=== PATIENT | female | born 1980 | race Caucasian/White ===

== ENCOUNTER 2017-02-21 13:43 | Emergency (ER) | payer MEDICAID, OTHER ==
[~2017-02-21] VITALS: Ht 157.5 cm; Wt 91.0 kg
[2017-02-21] MEDS ORDERED: AMOX125S8 PO (13:50)
[2017-02-21] MEDS ORDERED: KETOROLAC 60MG/2ML VIAL IM ONE (18:00)
[2017-02-21 18:15] VITALS: BP 131/81
== END 2017-02-21 18:57 | disposition home or self-care (01) ==
LOC: ER 16:13
DX: H60.92 Unspecified otitis externa, left ear (principal); R51 Headache; R68.84 Jaw pain; R03.0 Elevated blood-pressure reading, without diagnosis of hypertension; J45.909 Unspecified asthma, uncomplicated
CPT/HCPCS: 96372; 99283; J1885

== ENCOUNTER 2017-11-01 16:59 | Emergency (ER) | payer MEDICAID ==
[~2017-11-01] VITALS: Ht 149.9 cm; Wt 86.0 kg
[~2017-11-01 16:59] MED LIST: AMOX125S8 PO
[2017-11-02 03:08] LABS: BASOPHILS % 0.5 % (0.0-2.0); EOSINOPHILS % 3.3 % (0.0-5.0); HEMATOCRIT. 32.9 % (36.0-48.0); HEMOGLOBIN. 11.1 g/dL (12.0-16.0); LYMPHOCYTES % 26.4 % (20.0-50.0); MEAN CORPUSCULAR HEMOGLOBIN 29.5 pg (28.0-32.0); MEAN CORPUSCULAR VOLUME 87.7 fL (81.0-99.0); MEAN PLATELET VOLUME 8.9 fl (7.4-10.4); MONOCYTES % 6.2 % (2.0-8.0); NEUTROPHILS % 63.6 % (40.0-76.0); PLATELET 304 x1000/uL (130-400); RED BLOOD CELL COUNT 3.75 mill/uL (4.2-5.4); RED CELL DISTRIBUTION WIDTH 14.8 % (11.6-14.6)
[2017-11-02 03:09] LABS: CHLORIDE 106 mEq/L (98-107)
[2017-11-02 03:33] LABS: B-HCG QUANTITATIVE 12199 mIU/mL (<3)
[2017-11-02 03:49] LABS: CLARITY URINE CLOUDY (CLEAR); COLOR URINE YELLOW (YELLOW); KETONES URINE NEGATIVE (NEGATIVE); LEUKOCYTE ESTERASE URINE NEGATIVE (NEGATIVE); NITRITE URINE NEGATIVE (NEGATIVE); OCCULT BLOOD URINE 3+ (NEGATIVE); PROTEIN URINE NEGATIVE (NEGATIVE); SPECIFIC GRAVITY URINE 1.033 (1.005-1.030); UROBILINOGEN URINE 0.2 E.U./dL (0.2-1.0)
[2017-11-02 04:04] LABS: *AMPHETAMINES SCREEN URINE NEGATIVE (NEGATIVE); *BARBITURATES SCREEN URINE NEGATIVE (NEGATIVE); *COCAINE SCREEN URINE NEGATIVE (NEGATIVE); PHENCYCLIDINE URINE SCREEN NEGATIVE (NEGATIVE)
[2017-11-02 05:10] LABS: *BENZODIAZEPINES SCREEN URINE NEGATIVE (NEGATIVE); CANNABINOID URINE SCREEN NEGATIVE (NEGATIVE); METHADONE URINE SCREEN NEGATIVE (NEGATIVE); OPIATES URINE SCREEN NEGATIVE (NEGATIVE)
[2017-11-02 05:12] VITALS: BP 114/65
== END 2017-11-02 05:21 | disposition home or self-care (01) ==
LOC: ER 16:59
DX: O20.9 Hemorrhage in early pregnancy, unspecified (principal); Z3A.01 Less than 8 weeks gestation of pregnancy
CPT/HCPCS: 36415; 76801; 80053; 80305; 81003; 81025; 84702; 85025; 86850; 86900; 99285

== ENCOUNTER 2018-10-13 20:25 | Emergency (ER) | payer MEDICAID ==
[~2018-10-13] VITALS: Ht 147.3 cm; Wt 79.0 kg
[2018-10-13 22:57] LABS: CLARITY URINE CLEAR (CLEAR); COLOR URINE YELLOW (YELLOW); KETONES URINE TRACE (NEGATIVE); LEUKOCYTE ESTERASE URINE TRACE (NEGATIVE); NITRITE URINE NEGATIVE (NEGATIVE); OCCULT BLOOD URINE NEGATIVE (NEGATIVE); PROTEIN URINE NEGATIVE (NEGATIVE)
[2018-10-14] MEDS ORDERED: VISCOUS LIDOCAINE 2% 15 ML UDC MM STA (04:25)
[2018-10-14] MEDS ORDERED: FAMOTIDINE 20MG/2ML VIAL IV SCH (04:30)
[2018-10-14] MEDS ORDERED: MAGNESIUM/ALUMINUM HYDROXIDE/SIMETHICONE 30ML UDC PO ONE (04:30)
[2018-10-14] MEDS ORDERED: CEPHALEXIN 250MG CAPSULE PO NR (05:30)
[2018-10-14 05:58] VITALS: BP 125/92
== END 2018-10-14 05:59 | disposition home or self-care (01) ==
LOC: ER 20:25
DX: N39.0 Urinary tract infection, site not specified (principal); R12 Heartburn; J45.909 Unspecified asthma, uncomplicated; Z98.890 Other specified postprocedural states
CPT/HCPCS: 81003; 81025; 96374; 99283; J3490; Z7610

== ENCOUNTER 2022-12-15 08:31 | Emergency (ER) | payer MEDICAID ==
[~2022-12-15] VITALS: Ht 157.5 cm; Wt 87.0 kg
[~2022-12-15 08:31] MED LIST changes: +AMOX125S12 PO; -AMOX125S8 PO
[2022-12-15 08:34] VITALS: BP 135/87
[2022-12-15] MEDS ORDERED: SULF1TAB48 MT (09:40)
[2022-12-15] MEDS ORDERED: SULFAMETHOXAZOLE/TRIMETHOPRIM 800/160MG TABLET PO ONE (09:45)
== END 2022-12-15 10:57 | disposition home or self-care (01) ==
LOC: ER 08:31
DX: H57.89 Other specified disorders of eye and adnexa (principal); J45.909 Unspecified asthma, uncomplicated
CPT/HCPCS: 99283

== ENCOUNTER 2023-01-20 07:38 | Emergency (ER) | payer MEDICAID ==
[~2023-01-20] VITALS: Ht 147.3 cm; Wt 86.4 kg
[~2023-01-20 07:38] MED LIST changes: +SULF1TAB48 MT
[2023-01-20] MEDS ORDERED: ACETAMINOPHEN 325MG TABLET PO ONE (09:00)
[2023-01-20] MEDS ORDERED: IBUPROFEN 400MG TABLET PO ONE (09:00)
[2023-01-20 09:28] VITALS: BP 143/72
[2023-01-20] MEDS ORDERED: ACET-2708 MT (09:29)
== END 2023-01-20 09:32 | disposition home or self-care (01) ==
LOC: ER 07:38
DX: M25.562 Pain in left knee (principal); J45.909 Unspecified asthma, uncomplicated; Z98.890 Other specified postprocedural states
CPT/HCPCS: 73562; 99283

== ENCOUNTER 2024-06-13 13:05 | Emergency (ER) | payer MEDICAID ==
[~2024-06-13] VITALS: Ht 147.3 cm; Wt 88.0 kg
[~2024-06-13 13:05] MED LIST changes: +ACET-2708 MT
[2024-06-13 13:11] VITALS: O2SAT 99
[2024-06-13 13:21] VITALS: BP 124/76; PULSE 95; RESP 16; TEMP 98; O2SAT 100
[2024-06-13] MEDS ORDERED: OCUFLX EACHEYE (16:00)
== END 2024-06-13 16:04 | disposition home or self-care (01) ==
LOC: ER 13:17
DX: H10.89 Other conjunctivitis (principal); J45.909 Unspecified asthma, uncomplicated; I10 Essential (primary) hypertension; Z98.890 Other specified postprocedural states
CPT/HCPCS: 99283